=== PATIENT | female | born 1965 | race Caucasian/White ===

== ENCOUNTER 2019-07-16 08:06 | Outpatient (CLI) | payer BC, SELFPAY ==
--- NOTE | 2019-07-16 08:21 | XR_ITS ---
WS: [id number] LEFT ELBOW: 3 VIEW(S) TECHNIQUE: AP, oblique and lateral. HISTORY: left elbow trauma and pain COMPARISON: None available. No definite fracture. There is a lucency extending vertically through the radial metaphysis. Only see n on one image. No joint effusion. No soft tissue abnormality. XR/XR elbow LT min 3V* [id number] IMPRESSION: No joint effusion. No definite fracture seen.
== END 2019-07-16 08:07 | disposition home or self-care (01) ==
LOC: RADWPI 08:11
PROVIDERS: Family Provider Family Medicine; PCP Family Medicine; Visit Provider Family Medicine
DX: M25.522 Pain in left elbow (principal)
CPT/HCPCS: 73080

== ENCOUNTER → 2019-08-13 10:37 | Outpatient (BNVA) | payer BC, SELFPAY | PROVIDERS: Family Provider Family Medicine; PCP Family Medicine; Visit Provider Nurse Practitioner Family | DX: M54.9 Dorsalgia, unspecified (principal) | CPT/HCPCS: 81000 ==

== ENCOUNTER → 2019-11-11 08:33 | Outpatient (BNVA) | payer BC, SELFPAY | PROVIDERS: Family Provider Family Medicine; PCP Family Medicine; Visit Provider Family Medicine | DX: I10 Essential (primary) hypertension (principal) | CPT/HCPCS: 80053; 80061; 82043; 85025 ==

== ENCOUNTER → 2019-11-23 07:11 | Outpatient (BNVA) | payer BC, SELFPAY | PROVIDERS: Family Provider Family Medicine; PCP Family Medicine; Visit Provider Family Medicine | DX: Z12.11 Encounter for screening for malignant neoplasm of colon (principal) | CPT/HCPCS: 82270 ==

== ENCOUNTER → 2020-03-06 11:38 | Outpatient (BNVA) | payer BC, SELFPAY | PROVIDERS: Family Provider Family Medicine; PCP Family Medicine; Visit Provider Nurse Practitioner Family | DX: Z20.828 Contact with and (suspected) exposure to other viral communicable diseases (principal); R43.0 Anosmia | CPT/HCPCS: 87635 ==

== ENCOUNTER 2020-07-17 10:46 | Outpatient (CLI) | payer BC, SELFPAY | END 2020-07-17 10:47 | disposition home or self-care (01) | PROVIDERS: PCP Family Medicine; Visit Provider Nurse Practitioner | DX: R10.9 Unspecified abdominal pain (principal) | CPT/HCPCS: 36415; 85025 ==

== ENCOUNTER 2020-07-17 12:16 | Observation (INO) | payer BC, SELFPAY ==
[2020-07-17] VITALS (13 sets, daily range): BP systolic 125–168; BP diastolic 77–107; PULSE 77–110; RESP 12–20; TEMP 36.3–37.3; O2SAT 95–100; BMI 25.0
--- NOTE | 2020-07-17 12:20 | ED_ITS ---
Documented by User: ELIZ Sosa 07/17/20 13:55 HPI - Abdominal Pain General: Chief Complaint: Abdominal Pain Stated Complaint: RLQ pain Time Seen by Provider: 07/17/20 12:20 Source: patient Mode of arrival: ambulatory Limitations: no limitations History of Present Illness: HPI narrative: Patient is a nice 54-year-old female who presents to ED today after she was seen at urgent care and referred to the ED for further evaluation. Patient tells me yesterday she began noticing a slight discomfort to her right lower abdomen but nothing that was intolerable. She states this morning when she woke up she quickly noticed the pain had progressed to the point where she was quite uncomfortable. She has not noticed any nausea or vomiting. She continues to have normal bowel movements. She does not complain of dysuria, urinary frequency or urgency. She has not been running fevers. PMH is significant for allergic rhinitis and hypertension. MD elicited complaint: abdominal pain Pertinent past history: none Onset (ago): hour(s) Pain Consistency: constant Location: RLQ Quality: sharp Radiation: none Migration to: no migration Exacerbating factors: movement Relieving factors: nothing Associated Symptoms: Reports no associated symptoms; Denies change in stool character, chills, diarrhea, dysuria, fever(s), nausea and vomiting Related Data: Patient : No Review of Systems Const: Denies: fever(s), chills, body aches, fatigue or malaise Card: Denies: chest pain Resp: Denies: dyspnea GI: Reports: abdominal pain; Denies: nausea, vomiting, diarrhea or change in stool character : Denies: flank pain, dysuria, urinary frequency or urinary urgency Musc: Denies: neck pain or back pain Skin/Breast: Denies: rash Neuro: Denies: headache(s) PFSH ED PFSH: Medical History Allergic rhinitis Essential hypertension Reflux esophagitis Surgical History H/O carpal tunnel repair H/O section H/O hernia repair H/O knee surgery Family History Other CAD (coronary artery disease) Cancer Hypertension Social History (Updated 07/17/20 @ 12:32 by Isaac Patterson RN) Smoking and tobacco status: former smoker Alcohol intake: current Alcohol intake frequency: 0-2 Drinks per Day Alcohol type: beer Physical Exam Const: COMMON NORMALS: no acute distress, average body habitus, patient oriented x3, no limitations, healthy appearing, alert and well nourished GENERAL APPEARANCE: cooperative HENMT: COMMON NORMALS: normocephalic and atraumatic HEAD & SCALP: normocephalic and atraumatic Resp: COMMON NORMALS: normal respiratory effort and clear to auscultation bilaterally AUSCULTATION: clear to auscultation bilaterally Cardio: COMMON NORMALS: regular rhythm RATE: tachycardic RHYTHM: regular rhythm GI: COMMON NORMALS: Normal to inspection, nondistended, normoactive bowel sounds present, Soft to palpation, No hepatosplenomegaly present and no masses PALPATION: Yes Soft to palpation, Yes Tenderness to palpation present (GI) (max tenderness to RLQ but has tenderness throughout lower abdomen) Details: RLQ, Yes Guarding due to palpation present (GI), Yes No hepatosplenomegaly present and Yes Other GI palpation findings present (negative obturator/psoas; equivocal heel tap) : COMMON NORMALS: Yes no CVA tenderness BLADDER/KIDNEY EXAM: Yes no CVA tenderness Back/Pelvis: COMMON NORMALS: no CVA tenderness Extremity: COMMON NORMALS: normal to inspection Neuro: COMMON NORMALS: patient oriented x3 SENSORIUM/ORIENTATION: Yes alert Skin: COMMON NORMALS: no rashes or lesions noted GENERAL SKIN EXAM: no rashes or lesions noted TRAUMA: no lacerations or abrasions Course Consultations: Consultation #1: Dr. Cade-admit to him obs; IV Zosyn, fluids, NPO; plan for OR in a few hours Vital Signs: Vital signs: Vital Signs Temperature 98.8 F 07/17/20 23:20 Pulse Rate 89 07/17/20 23:20 Respiratory Rate 18 07/17/20 23:20 Blood Pressure 152/84 07/17/20 23:20 Pulse Oximetry 95 07/17/20 23:20 MDM - Abdominal Pain MDM Narrative: Medical decision making narrative: Patient has an acute appendicitis without perforation or rupture. She is mildly tachycardic with a white count of 13.6. No fevers or hypotension. She has a normal lactate. Remainder of labs are non-concerning. I have spoken to Dr. Cade who will take to the OR. She has been started on IV fluids and Zosyn. Lab Data: Labs: Lab Results 07/17/20 07/17/20 07/17/20 Range/Units 12:35 12:35 12:35 WBC 13.6 H (4.0-10.0) 10^3/ uL RBC 4.66 (4.1-5.3) 10^6/u L Hgb 14.6 (11.5-15.3) g/dL Hct 43.9 (37.0-47.0) % MCV 94.2 (81-99) fL MCH 31.3 (28.0-34.0) pg MCHC 33.3 (30.0-36.0) g/dL RDW 12.2 (12.1-15.1) % Plt Count 265 (130-400) 10^3/c mm MPV 9.7 (7.4-10.4) fL Neut % (Auto) 83.2 % Lymph % (Auto) 9.2 % [place] % (Auto) 6.7 % Eos % (Auto) 0.3 % Baso % (Auto) 0.4 % Neut # (Auto) 11.30 H (1.8-7.7) 10^3/u L Lymph # (Auto) 1.3 (0.8-4.8) 10^3/u L [place] # (Auto) 0.9 (0.2-0.9) 10^3/u L Eos # (Auto) 0.0 (0.0-0.8) 10^3/u L Baso # (Auto) 0.1 (0.0-0.1) 10^3/u L Nucleated RBC % (a uto) 0 % Nucleated RBCs # 0.0 /100WBC Sodium 139 (136-145) mmol/L Potassium 4.2 (3.5-5.1) mmol/L Chloride 102 (98-107) mmol/L Carbon Dioxide 24 (22-29) mmol/L Anion Gap 17.2 (5-19) BUN 11 (6-20) mg/dL Creatinine 0.9 (0.5-0.9) mg/dL GFR Calculation 65.0 L (90-130) mL/min Glucose 150 H (65-115) mg/dL Calculated Osmolal ity 290 (285-295) mOsm/k g Lactic Acid 2.0 (0.5-2.2) mmol/L Calcium 9.2 (8.5-10.5) mg/dL Total Bilirubin 0.7 (0.15-1.2) mg/dL AST 16 (0-32) U/L ALT 19 (0-33) U/L Alkaline Phosphata se 66 (35-105) IU/L Total Protein 7.4 (6.6-8.7) g/dL Albumin 4.7 (3.5-5.2) g/dL Globulin 2.7 (1.3-4.6) g/dL Lipase 24 (13-60) U/L HCG, Qual (Negative) Urine Color (Yellow) Urine Appearance (CLEAR) Urine pH (5-7) Ur Specific Gravit y (1.005-1.030) Urine Protein (Negative) Urine Glucose (UA) (Normal) Urine Ketones (Negative) Urine Blood (Negative) Urine Nitrate (Negative) Urine Bilirubin (Negative) Prot Sulfosalicyli c Acd (Negative) Urine Urobilinogen (Negative) mg/dL Ur Leukocyte Salima ase (Negative) Urine RBC (0-2) /hpf Urine WBC (0-5) /hpf Ur Squamous Epith Cells (0-5) /hpf Amorphous Sediment Urine Bacteria (NONE) /hpf Urine Mucus /hpf 07/17/20 07/17/20 Range/Units 12:35 12:35 WBC (4.0-10.0) 10^3/ uL RBC (4.1-5.3) 10^6/u L Hgb (11.5-15.3) g/dL Hct (37.0-47.0) % MCV (81-99) fL MCH (28.0-34.0) pg MCHC (30.0-36.0) g/dL RDW (12.1-15.1) % Plt Count (130-400) 10^3/c mm MPV (7.4-10.4) fL Neut % (Auto) % Lymph % (Auto) % [place] % (Auto) % Eos % (Auto) % Baso % (Auto) % Neut # (Auto) (1.8-7.7) 10^3/u L Lymph # (Auto) (0.8-4.8) 10^3/u L [place] # (Auto) (0.2-0.9) 10^3/u L Eos # (Auto) (0.0-0.8) 10^3/u L Baso # (Auto) (0.0-0.1) 10^3/u L Nucleated RBC % (a uto) % Nucleated RBCs # /100WBC Sodium (136-145) mmol/L Potassium (3.5-5.1) mmol/L Chloride (98-107) mmol/L Carbon Dioxide (22-29) mmol/L Anion Gap (5-19) BUN (6-20) mg/dL Creatinine (0.5-0.9) mg/dL GFR Calculation (90-130) mL/min Glucose (65-115) mg/dL Calculated Osmolal ity (285-295) mOsm/k g Lactic Acid (0.5-2.2) mmol/L Calcium (8.5-10.5) mg/dL Total Bilirubin (0.15-1.2) mg/dL AST (0-32) U/L ALT (0-33) U/L Alkaline Phosphata se (35-105) IU/L Total Protein (6.6-8.7) g/dL Albumin (3.5-5.2) g/dL Globulin (1.3-4.6) g/dL Lipase (13-60) U/L HCG, Qual Negative (Negative) Urine Color Yellow (Yellow) Urine Appearance Clear (CLEAR) Urine pH 9 H (5-7) Ur Specific Gravit y 1.015 (1.005-1.030) Urine Protein Trace (Negative) Urine Glucose (UA) Norm (Normal) Urine Ketones Negative (Negative) Urine Blood Neg (Negative) Urine Nitrate Negative (Negative) Urine Bilirubin Neg (Negative) Prot Sulfosalicyli c Acd Negative (Negative) Urine Urobilinogen Norm (Negative) mg/dL Ur Leukocyte Salima ase Negative (Negative) Urine RBC 5-10 H (0-2) /hpf Urine WBC None (0-5) /hpf Ur Squamous Epith Cells 0-4 H (0-5) /hpf Amorphous Sediment Not Reportable Urine Bacteria 1+ H (NONE) /hpf Urine Mucus 4+ /hpf Imaging Data ^: CT Abd/Pel: Radiologist's impression: [id number] [place], [place] [address]VJ Scan ReportSigned Patient: Noemí Plummer #: [id number]: 1965Acct#:[id number]/Sex: 54 / FADM Date: 07/17/20Loc: ERRoom/Bed:Attending Dr: Ordering Provider/Ordering MD: Sherlyn Garcia Date of Service: 07/17/20 Procedure(s): CT abdomen pelvis w con* [id number] Accession Number(s): [id number] Report Number: [id number] WS: [id number] CT ABDOMEN AND PELVIS WITH CONTRAST HISTORY: R lower abdominal pain TECHNIQUE: Imaging performed of the abdomen and pelvis with IV contrast. Single phase imaging of the abdomen. Coronal and sagittal reformats are submitted. All CT scans at [facility] use at least one of these dose optimization techniques: automated exposure control; mA and/or kV adjustment per patient size (includes targeted exams where dose is matched to clinical indication); or iterative reconstruction. IV CONTRAST: Omnipaque 300; 95 mL IV. Oral contrast: No DLP: 1171.8 mGy.cm COMPARISON: None available. Lower thorax: Lung bases are clear. Heart is normal size. No hiatal hernia. Liver/biliary system: Normal size liver. Low-attenuation nodule measuring 6 mm in the RIGHT lobe. There is a larger cyst near the yahaira hepatis measuring 1.6 cm. No bile duct dilatation. Gallbladder: Normal. No gallstones or wall thickening. No pericholecystic fluid. Pancreas: Normal size pancreas and pancreatic duct. No adjacent inflammation. Spleen: Normal size spleen. No mass or infarct. Adrenal glands: Normal. Right kidney: Normal. Left kidney: Normal. Aorta: Normal. Lymphadenopathy: None. Free fluid: Very small amount of free fluid in the pelvis. GI tract: Inflammatory process in the RIGHT lower quadrant. There is mild hyperemia in the wall of the appendix and the appendix is dilated measuring up to 9 mm. There is mild periappendiceal inflammation. There are a few small lymph nodes also in the RIGHT lower quadrant. No GI tract obstruction. The remaining GI tract is negative. Abdominal wall: Unremarkable abdominal wall. No hernia. Pelvis: Tiny amount of free fluid in the pelvis. Could be physiologic. Normal size uterus. No adnexal masses other than normal-appearing ovaries. Bones: Unremarkable. CT/CT abdomen pelvis w con* [id number] IMPRESSION: 1. Acute appendicitis with no pelvic abscess. Small reactive lymph nodes in the RIGHT lower quadrant. 2. Hepatic cysts. Discharge Plan Discharge Patient Disposition: Admitted As Inpatient Admit Provider: Casimiro Cade Clinical Impression: Acute appendicitis Qualifiers: Acute appendicitis type: with localized peritonitis Appendicitis gangrene presence: without gangrene Appendicitis perforation presence: without perforation Appendicitis abscess presence: without abscess Qualified Code(s): K35.30 - Acute appendicitis with localized peritonitis, without perforation or gangrene Condition: Stable Coding Level of Care Code ED Director Of Counseling for Chg Fwd Exam Comprehensive Documented by User: Luis Hutchins MD 07/17/20 23:29 HPI - Abdominal Pain General: Chief Complaint: Abdominal Pain Stated Complaint: RLQ pain Time Seen by Provider: 07/17/20 12:20 [facility] ED PFSH: Medical History Allergic rhinitis Essential hypertension Reflux esophagitis Surgical History H/O carpal tunnel repair H/O section H/O hernia repair H/O knee surgery Family History Other CAD (coronary artery disease) Cancer Hypertension Social History (Updated 07/17/20 @ 12:32 by Isaac Patterson RN) Smoking and tobacco status: former smoker Alcohol intake: current Alcohol intake frequency: 0-2 Drinks per Day Alcohol type: beer Course Vital Signs: Vital signs: Vital Signs Temperature 98.8 F 07/17/20 23:20 Pulse Rate 89 07/17/20 23:20 Respiratory Rate 18 07/17/20 23:20 Blood Pressure 152/84 07/17/20 23:20 Pulse Oximetry 95 07/17/20 23:20 MDM - Abdominal Pain Lab Data: Labs: Lab Results 07/17/20 07/17/20 07/17/20 Range/Units 12:35 12:35 12:35 WBC 13.6 H (4.0-10.0) 10^3/ uL RBC 4.66 (4.1-5.3) 10^6/u L Hgb 14.6 (11.5-15.3) g/dL Hct 43.9 (37.0-47.0) % MCV 94.2 (81-99) fL MCH 31.3 (28.0-34.0) pg MCHC 33.3 (30.0-36.0) g/dL RDW 12.2 (12.1-15.1) % Plt Count 265 (130-400) 10^3/c mm MPV 9.7 (7.4-10.4) fL Neut % (Auto) 83.2 % Lymph % (Auto) 9.2 % [place] % (Auto) 6.7 % Eos % (Auto) 0.3 % Baso % (Auto) 0.4 % Neut # (Auto) 11.30 H (1.8-7.7) 10^3/u L Lymph # (Auto) 1.3 (0.8-4.8) 10^3/u L [place] # (Auto) 0.9 (0.2-0.9) 10^3/u L Eos # (Auto) 0.0 (0.0-0.8) 10^3/u L Baso # (Auto) 0.1 (0.0-0.1) 10^3/u L Nucleated RBC % (a uto) 0 % Nucleated RBCs # 0.0 /100WBC Sodium 139 (136-145) mmol/L Potassium 4.2 (3.5-5.1) mmol/L Chloride 102 (98-107) mmol/L Carbon Dioxide 24 (22-29) mmol/L Anion Gap 17.2 (5-19) BUN 11 (6-20) mg/dL Creatinine 0.9 (0.5-0.9) mg/dL GFR Calculation 65.0 L (90-130) mL/min Glucose 150 H (65-115) mg/dL Calculated Osmolal ity 290 (285-295) mOsm/k g Lactic Acid 2.0 (0.5-2.2) mmol/L Calcium 9.2 (8.5-10.5) mg/dL Total Bilirubin 0.7 (0.15-1.2) mg/dL AST 16 (0-32) U/L ALT 19 (0-33) U/L Alkaline Phosphata se 66 (35-105) IU/L Total Protein 7.4 (6.6-8.7) g/dL Albumin 4.7 (3.5-5.2) g/dL Globulin 2.7 (1.3-4.6) g/dL Lipase 24 (13-60) U/L HCG, Qual (Negative) Urine Color (Yellow) Urine Appearance (CLEAR) Urine pH (5-7) Ur Specific Gravit y (1.005-1.030) Urine Protein (Negative) Urine Glucose (UA) (Normal) Urine Ketones (Negative) Urine Blood (Negative) Urine Nitrate (Negative) Urine Bilirubin (Negative) Prot Sulfosalicyli c Acd (Negative) Urine Urobilinogen (Negative) mg/dL Ur Leukocyte Salima ase (Negative) Urine RBC (0-2) /hpf Urine WBC (0-5) /hpf Ur Squamous Epith Cells (0-5) /hpf Amorphous Sediment Urine Bacteria (NONE) /hpf Urine Mucus /hpf 07/17/20 07/17/20 Range/Units 12:35 12:35 WBC (4.0-10.0) 10^3/ uL RBC (4.1-5.3) 10^6/u L Hgb (11.5-15.3) g/dL Hct (37.0-47.0) % MCV (81-99) fL MCH (28.0-34.0) pg MCHC (30.0-36.0) g/dL RDW (12.1-15.1) % Plt Count (130-400) 10^3/c mm MPV (7.4-10.4) fL Neut % (Auto) % Lymph % (Auto) % [place] % (Auto) % Eos % (Auto) % Baso % (Auto) % Neut # (Auto) (1.8-7.7) 10^3/u L Lymph # (Auto) (0.8-4.8) 10^3/u L [place] # (Auto) (0.2-0.9) 10^3/u L Eos # (Auto) (0.0-0.8) 10^3/u L Baso # (Auto) (0.0-0.1) 10^3/u L Nucleated RBC % (a uto) % Nucleated RBCs # /100WBC Sodium (136-145) mmol/L Potassium (3.5-5.1) mmol/L Chloride (98-107) mmol/L Carbon Dioxide (22-29) mmol/L Anion Gap (5-19) BUN (6-20) mg/dL Creatinine (0.5-0.9) mg/dL GFR Calculation (90-130) mL/min Glucose (65-115) mg/dL Calculated Osmolal ity (285-295) mOsm/k g Lactic Acid (0.5-2.2) mmol/L Calcium (8.5-10.5) mg/dL Total Bilirubin (0.15-1.2) mg/dL AST (0-32) U/L ALT (0-33) U/L Alkaline Phosphata se (35-105) IU/L Total Protein (6.6-8.7) g/dL Albumin (3.5-5.2) g/dL Globulin (1.3-4.6) g/dL Lipase (13-60) U/L HCG, Qual Negative (Negative) Urine Color Yellow (Yellow) Urine Appearance Clear (CLEAR) Urine pH 9 H (5-7) Ur Specific Gravit y 1.015 (1.005-1.030) Urine Protein Trace (Negative) Urine Glucose (UA) Norm (Normal) Urine Ketones Negative (Negative) Urine Blood Neg (Negative) Urine Nitrate Negative (Negative) Urine Bilirubin Neg (Negative) Prot Sulfosalicyli c Acd Negative (Negative) Urine Urobilinogen Norm (Negative) mg/dL Ur Leukocyte Salima ase Negative (Negative) Urine RBC 5-10 H (0-2) /hpf Urine WBC None (0-5) /hpf Ur Squamous Epith Cells 0-4 H (0-5) /hpf Amorphous Sediment Not Reportable Urine Bacteria 1+ H (NONE) /hpf Urine Mucus 4+ /hpf Discharge Plan Discharge Patient Disposition: Admitted As Inpatient Admit Provider: Casimiro Cade Clinical Impression: Acute appendicitis Qualifiers: Acute appendicitis type: with localized peritonitis Appendicitis gangrene presence: without gangrene Appendicitis perforation presence: without perforation Appendicitis abscess presence: without abscess Qualified Code(s): K35.30 - Acute appendicitis with localized peritonitis, without perforation or gangrene Condition: Stable Coding Level of Care Code ED Director Of Counseling for Chg Fwd Exam Comprehensive
--- NOTE | 2020-07-17 12:29 | CT_ITS ---
WS: [id number] CT ABDOMEN AND PELVIS WITH CONTRAST HISTORY: R lower abdominal pain TECHNIQUE: Imaging performed of the abdomen and pelvis with IV contrast. Single phase imaging of the abdomen. Coronal and sagittal reformats are submitted. All CT scans at [facility] use at least one of these dose optimization techniques: automated exposure control; mA and/or kV adjustment per patient size (includes targeted exams where dose is matched to clinical indication); or iterativ e reconstruction. IV CONTRAST: Omnipaque 300; 95 mL IV. Oral contrast: No DLP: 1171.8 mGy.cm COMPARISON: None available. Lower thorax: Lung bases are clear. Heart is normal size. No hiatal hernia. Liver/biliary system: Normal size liver. Low-attenuation nodule measuring 6 mm in the RIGHT lobe. The re is a larger cyst near the yahaira hepatis measuring 1.6 cm. No bile duct dilatation. Gallbladder: Normal. No gallstones or wall thickening. No pericholecystic fluid. Pancreas: Normal size pancreas and pancreatic duct. No adjacent inflammation. Spleen: Normal size spleen. No mass or infarct. Adrenal glands: Normal. Right kidney: Normal. Left kidney: Normal. Aorta: Normal. Lymphadenopathy: None. Free fluid: Very small amount of free fluid in the pelvis. GI tract: Inflammatory process in the RIGHT lower quadrant. There is mild hyperemia in the wall of th e appendix and the appendix is dilated measuring up to 9 mm. There is mild periappendiceal inflammati on. There are a few small lymph nodes also in the RIGHT lower quadrant. No GI tract obstruction. The remaining GI tract is negative. Abdominal wall: Unremarkable abdominal wall. No hernia. Pelvis: Tiny amount of free fluid in the pelvis. Could be physiologic. Normal size uterus. No adnexal masses other than normal-appearing ovaries. Bones: Unremarkable. CT/CT abdomen pelvis w con* [id number] IMPRESSION: 1. Acute appendicitis with no pelvic abscess. Small reactive lymph nodes in th e RIGHT lower quadrant. 2. Hepatic cysts.
[2020-07-17] MEDS: acetaminophen 1,000 MG/100 ML PIGGYBACK 400 MG IV (12:35)
--- NOTE | 2020-07-17 12:40 | PC.PHAR ---
pt states she takes care of her medications- pt states she hasnt taken her amlodipine 2.5mg for a few days-[facility]ada states they last filled 06/19/2019 90d/s-pt states she only took 30 days of lipitor 10mg and hasnt taken since jan-
[2020-07-17 12:49] LABS: Basophils # 0.1 10^3/uL (0.0-0.1); Basophils % 0.4 %; Eosinophils % 0.3 %; Hematocrit 43.9 % (37.0-47.0); Hemoglobin 14.6 g/dL (11.5-15.3); Lymphocytes # 1.3 10^3/uL (0.8-4.8); Lymphocytes % 9.2 %; Mean Corpuscular HGB Conc 33.3 g/dL (30.0-36.0); Mean Corpuscular Hemoglobin 31.3 pg (28.0-34.0); Mean Corpuscular Volume 94.2 fL (81-99); Mean Platelet Volume 9.7 fL (7.4-10.4); Monocytes # 0.9 10^3/uL (0.2-0.9); Monocytes % 6.7 %; Neutrophils % 83.2 %; Nucleated Red Blood Cells % 0 %; Platelet Count 265 10^3/cmm (130-400); Red Blood Count 4.66 10^6/uL (4.1-5.3); Red Cell Distribution Width 12.2 % (12.1-15.1); White Blood Count 13.6 10^3/uL (4.0-10.0)
[2020-07-17] MEDS: iohexol 300 mg/mL 100 mL Btl IV (12:52)
[2020-07-17 13:09] LABS: Add Urine Microscopic? YES; Bilirubin Urine Neg (Negative); Blood Urine Neg (Negative); Glucose Urine UA Norm (Normal); Ketones Urine Negative (Negative); Leukocyte Esterase Urine Negative (Negative); Mucus Urine 4+ /hpf; Nitrate Urine Negative (Negative); Protein Urine Trace (Negative); Specific Gravity, Urine 1.015 (1.005-1.030); Sulfosalicylic Acid Urine Negative (Negative); Urine Appearance Clear (CLEAR); Urine Color Yellow (Yellow); Urobilinogen Urine Norm (Negative); pH Urine 9 (5-7)
[2020-07-17 13:10] LABS: Bacteria Urine 1+ /hpf; Squamous Epithelial Cell Urine 0-4 /hpf (0-5)
[2020-07-17 13:11] LABS: Add Urine Culture? No
[2020-07-17 13:12] LABS: Alanine Aminotransferase 19 U/L (0-33); Albumin Level 4.7 g/dL (3.5-5.2); Alkaline Phosphatase 66 IU/L (35-105); Anion Gap 17.2 (5-19); Aspartate Amino Transferase 16 U/L (0-32); Blood Urea Nitrogen 11 mg/dL (6-20); Calcium 9.2 mg/dL (8.5-10.5); Carbon Dioxide 24 mmol/L (22-29); Chloride 102 mmol/L (98-107); Globulin 2.7 g/dL (1.3-4.6); Glucose 150 mg/dL (65-115); HCG, Serum Qual Negative (Negative); Lipase 24 U/L (13-60); Osmolality Calculated 290 mOsm/kg (285-295); Potassium 4.2 mmol/L (3.5-5.1); Sodium 139 mmol/L (136-145); Total Bilirubin 0.7 mg/dL (0.15-1.2); Total Protein 7.4 g/dL (6.6-8.7)
[2020-07-17] MEDS: sodium chloride 0.9% 1,000 ML 999 ML IV (13:30)
[2020-07-17] MEDS: piperacillin-tazobactam 3.375 GM in sodium chloride 0.9% (plus) 50 ML IV ×2 (13:30→20:57)
--- NOTE | 2020-07-17 13:52 | PM.HP ---
Providers/Chief Complaint Primary Care Provider: Isabell Laboy DO Chief Complaint: RLQ pain History of Present Illness Chief Complaint: Abdominal pain History of present illness:Ms Prudence Plummer is a pleasant 54 year old female presents to the emergency department with worsening abdominal pain that started yesterday evening at the periumbilical area, that started shifting towards the right lower quadrant. Associated with nausea but no vomiting and no change in bowel habits or dysuria. Patient reports that she never had this pain before. The pain got worse presented to the ER for further work-up and blood work showed leukocytosis and some tachycardia and she was started on IV fluids. And patient seemed to be responded to that CT scan of the abdomen pelvis did show Lower thorax: Lung bases are clear. Heart is normal size. No hiatal hernia. Liver/biliary system: Normal size liver. Low-attenuation nodule measuring 6 mm in the RIGHT lobe. There is a larger cyst near the yahaira hepatis measuring 1.6 cm. No bile duct dilatation. Gallbladder: Normal. No gallstones or wall thickening. No pericholecystic fluid. Pancreas: Normal size pancreas and pancreatic duct. No adjacent inflammation. Spleen: Normal size spleen. No mass or infarct. Adrenal glands: Normal. Right kidney: Normal. Left kidney: Normal. Aorta: Normal. Lymphadenopathy: None. Free fluid: Very small amount of free fluid in the pelvis. GI tract: Inflammatory process in the RIGHT lower quadrant. There is mild hyperemia in the wall of the appendix and the appendix is dilated measuring up to 9 mm. There is mild periappendiceal inflammation. There are a few small lymph nodes also in the RIGHT lower quadrant. No GI tract obstruction. The remaining GI tract is negative. Abdominal wall: Unremarkable abdominal wall. No hernia. Pelvis: Tiny amount of free fluid in the pelvis. Could be physiologic. Normal size uterus. No adnexal masses other than normal-appearing ovaries. Bones: Unremarkable. CT/CT abdomen pelvis w con* [id number] IMPRESSION: 1. Acute appendicitis with no pelvic abscess. Small reactive lymph nodes in the RIGHT lower quadrant. 2. Hepatic cysts. General surgery was consulted for further evaluation and care. Last colonoscopy 1 the patient was asked was done many years ago and was within normal limits per patient's description. Patient reports no history of anesthesia or bleeding issues. Review of Systems General: Reports: 10 or more systems reviewed and unremarkable except in HPI and below Medications/Allergies Home Medications Medication Instructions Recorded Confirmed Last Taken Type fluticasone propionate 50 1 spray INTRANASAL BID #15.8 ml 11/11/19 07/17/20 07/17/20 Rx mcg/actuation nasal spray,suspension Vitamin B-12 1 tab PO DAILY 07/17/20 07/17/20 07/16/20 History albuterol sulfate 2.5 mg INHALATION PRN 07/17/20 07/17/20 Unknown History amlodipine 2.5 mg PO QAM 07/17/20 07/17/20 Unknown History ibuprofen 800 mg PO PRN 07/17/20 07/17/20 Unknown History montelukast 10 mg PO BEDTIME 07/17/20 07/17/20 07/16/20 History Allergies Allergy/AdvReac Type Severity Reaction Status Date / Time codeine Allergy hives Verified 07/17/20 13:54 PFSH Acute PFSH: Medical History Allergic rhinitis Essential hypertension Reflux esophagitis Surgical History H/O carpal tunnel repair H/O section H/O hernia repair H/O knee surgery Family History Other CAD (coronary artery disease) Cancer Hypertension Social History (Updated 07/17/20 @ 12:32 by Isaac Patterson RN) Smoking and tobacco status: former smoker Alcohol intake: current Alcohol intake frequency: 0-2 Drinks per Day Alcohol type: beer Vitals/I&O/Wt Last Vital Signs Temp 99.1 F 07/17/20 12:24 Pulse 110 H 07/17/20 12:24 Resp 18 07/17/20 13:07 BP 142/77 07/17/20 13:07 Pulse Ox 97 07/17/20 13:07 07/16/20 07/17/20 07/17/20 22:59 06:59 14:59 Intake Total 100 / 100 Balance 100 / 100 Weight last 48 hrs Weight 165 lb Physical Exam Narrative: EXAM NARRATIVE: Patient is conscious alert oriented X3 BMI 25.1 Head and neck examination PERRLA no masses no cervical lymphadenopathy no jaundice Cardiac examination audible S1-S2 no murmurs no gallops no arrhythmias Chest is clear bilateral,abscence of Rhonchi or wheezes,no surgical emphysema Abdomen nontender except towards the suprapubic and right lower quadrant with localized guarding and rigidity w maximal tenderness at McBurney's point consistent with acute appendicitis. Otherwise nondistended soft no organomegaly guarding or rigidity/no signs of peritonitis Extremities no cyanosis no clubbing no edema Data : 07/17/20 12:35 07/17/20 12:35 A&P Assessment and plan (1) Acute appendicitis: After thorough history physical examination and reviewing the chart and images with my personal interpretion, I counseled the patient for laparoscopic appendectomy possible open. Indications, risks, benefits and alternatives were all discussed with the patient and did agree to proceed. Rationale was carefully and clearly discussed with the patient.Appropriate informed consent have been reviewed and signed Status: Acute Qualifiers: Acute appendicitis type: with localized peritonitis Appendicitis abscess presence: without abscess Appendicitis gangrene presence: without gangrene Appendicitis perforation presence: without perforation Qualified Code(s): K35.30 - Acute appendicitis with localized peritonitis, without perforation or gangrene Attestations Medical Necessity Statement*: Observation for perioperative care Time Spent in Patient Care: (>than 50% of time spent in counselling and/or direct pt care on unit). Coding Level of Care Code Acute Provider Relations Consultant for [facility] Fwd Diagnoses Acute appendicitis K35.30 Acute appendicitis type: with localized peritonitis Appendicitis abscess presence: without abscess Appendicitis gangrene presence: without gangrene Appendicitis perforation presence: without perforation
[2020-07-17] MEDS: sodium chloride 0.9% 1,000 ML 30 ML IV (14:08)
--- NOTE | 2020-07-17 14:36 | P.ANESASSM_ITS ---
Pre-Anesthetic Assessment Pre-Anesthetic Assessment: Height/Weight: Height 1.73 m Weight 74.843 kg Temp Pulse Resp BP Pulse Ox 98.0 F 94 18 141/84 96 07/17/20 14:02 07/17/20 14:02 07/17/20 14:02 07/17/20 14:02 07/17/20 14:02 Preop Diagnosis: Acute appendicitis Proposed Procedure: Operation Date: 07/17/20 15:30 Proposed Procedures p Laparoscopic Appendectomy(Not Applicable) - Casimiro Cade MD Familial anesthetic complications: pONV Was Beta Surya taken within 24 hours: N/A Was Clonidine taken within 24 hours: N/A Last intake: Intake Drank some of a mcdonalds frappe and a few cy[employer]ot fries at 1130 Last Liquid Date 07/17/20 Last Liquid Time 11:30 Last Solid Date 07/17/20 Last Solid Time 08:00 Social: Social History: No alcohol and No tobacco Exam: Pre-Anes Outpt Exam: alert, oriented x 3, clear to auscultation bilaterally and regular rate & rhythm Airway: Cervical ROM: WNL MP: 2 Dentition: Full Pulmonary: Comments: allergies CV/HEM: CV/HEM: HTN Anesthetic Plan: ASA status: 2E Anesthesia: General Other: RSI Risk of > 500 ml blood loss (7ml/kg in children): No Meds/Allergies Current Medications: Current Medications Generic Name Dose Route Start Last Admin Trade Name Freq PRN Reason Stop Dose Admin Acetaminophen 1,000 mg in 100 m ls @ 400 mls/hr 07/17/20 12:29 07/17/20 13:30 Acetaminophen IV Infused ONCE ONE Infusion Sodium Chloride 1,000 mls @ 30 ml s/hr 07/17/20 14:00 07/17/20 14:08 Sodium Chloride 0.9% IV 07/18/20 13:59 30 mls/hr .Q24H CHUY Administration PFSH Anesthesia PFSH: Medical History Allergic rhinitis Essential hypertension Reflux esophagitis Surgical History H/O carpal tunnel repair H/O section H/O hernia repair H/O knee surgery Family History Other CAD (coronary artery disease) Cancer Hypertension Social History (Updated 07/17/20 @ 12:32 by Isaac Patterson RN) Smoking and tobacco status: former smoker Alcohol intake: current Alcohol intake frequency: 0-2 Drinks per Day Alcohol type: beer Data Anesthesia CBC & Chem 7: 07/17/20 12:35 07/17/20 12:35 Other Labs: Laboratory Results - last 48 hr 07/17/20 07/17/20 07/17/20 12:35 12:35 12:35 WBC 13.6 H RBC 4.66 Hgb 14.6 Hct 43.9 MCV 94.2 MCH 31.3 MCHC 33.3 RDW 12.2 Plt Count 265 MPV 9.7 Neut % (Auto) 83.2 Lymph % (Auto) 9.2 [place] % (Auto) 6.7 Eos % (Auto) 0.3 Baso % (Auto) 0.4 Neut # (Auto) 11.30 H Lymph # (Auto) 1.3 [place] # (Auto) 0.9 Eos # (Auto) 0.0 Baso # (Auto) 0.1 Nucleated RBC % (auto) 0 Nucleated RBCs # 0.0 Sodium 139 Potassium 4.2 Chloride 102 Carbon Dioxide 24 Anion Gap 17.2 BUN 11 Creatinine 0.9 GFR Calculation 65.0 L Glucose 150 H Calculated Osmolality 290 Lactic Acid 2.0 Calcium 9.2 Total Bilirubin 0.7 AST 16 ALT 19 Alkaline Phosphatase 66 Total Protein 7.4 Albumin 4.7 Globulin 2.7 Lipase 24 HCG, Qual Urine Color Urine Appearance Urine pH Ur Specific [place] Urine Protein Urine Glucose (UA) Urine Ketones Urine Blood Urine Nitrate Urine Bilirubin Prot Sulfosalicylic Acd Urine Urobilinogen Ur Leukocyte Esterase Urine RBC Urine WBC Ur Squamous Epith Cells Amorphous Sediment Urine Bacteria Urine Mucus 07/17/20 07/17/20 12:35 12:35 WBC RBC Hgb Hct MCV MCH MCHC RDW Plt Count MPV Neut % (Auto) Lymph % (Auto) [place] % (Auto) Eos % (Auto) Baso % (Auto) Neut # (Auto) Lymph # (Auto) [place] # (Auto) Eos # (Auto) Baso # (Auto) Nucleated RBC % (auto) Nucleated RBCs # Sodium Potassium Chloride Carbon Dioxide Anion Gap BUN Creatinine GFR Calculation Glucose Calculated Osmolality Lactic Acid Calcium Total Bilirubin AST ALT Alkaline Phosphatase Total Protein Albumin Globulin Lipase HCG, Qual Negative Urine Color Yellow Urine Appearance Clear Urine pH 9 H Ur Specific [place] 1.015 Urine Protein Trace Urine Glucose (UA) Norm Urine Ketones Negative Urine Blood Neg Urine Nitrate Negative Urine Bilirubin Neg Prot Sulfosalicylic Acd Negative Urine Urobilinogen Norm Ur Leukocyte Esterase Negative Urine RBC 5-10 H Urine WBC None Ur Squamous Epith Cells 0-4 H Amorphous Sediment Not Reportable Urine Bacteria 1+ H Urine Mucus 4+ Cardiac Studies: No Data to Display
[2020-07-17] MEDS: lidocaine 2% INJ 20 mL INJECTION (16:23)
--- NOTE | 2020-07-17 16:32 | P.OP_ITS ---
Operative Report Date of procedure: July 17, 2020 Pre-op Diagnosis: Acute appendicitis Post-op Diagnosis: Retrocecal acute appendicitis with suppuration Procedure Done: Laparoscopic appendectomy Surgeon: Casimiro Cade Director Multiple Sclerosis Center: Surgical emir Gavin circulating nurse Hollie Anesthesia: General (oil developer Marco) Estimated blood loss (mL): 10 IV fluids (mL): 700 Condition: stable Disposition: observation Brief History: 54 years old female patient presents with acute appendicitis. Full H&P and consent per chart. Procedure: Patient after being identified in the holding area and asked to void urine, and informed consent per chart ,patient was then taken back to the OR placed in supine position got intubated by anesthesia left arm was tucked tucked ,Timeout was done verifying the patient's name/date of /planned procedure and destination after the procedure, all were in agreement., preoperative antibiotics administered per protocol. prep and drape of the abdomen was done under the usual sterile technique. Started by longitudinal skin incision supraumbilical using a Quinonez trocar technique safe entry to the abdominal cavity was achieved verified by using 10 mm zero degree laparoscopy, switched to a 30? scope under direct visualization a suprapubic 5 mm trocar was inserted followed by another 5 mm trocar inserted in the left lower quadrant, I was able to position the patient in an T Maddox and left side down, dissection of the prececal acutely inflamed appendix there was some adhesions towards the lateral pelvic wall that was taken down by sharp and blunt dissection, attention was deviated to the healthy base of the appendix where I had to switch the camera to 5 mm 30? scope got introduced through the left lower quadrant and through the Quinonez trocar under direct visualization a GI stapler 45 mm blue load was applied at the healthy part of the base of the appendix, and an Endoloop PDS was applied onto the mesoappendix for control , the appendix was then retrieved in an Endo Catch bag, final survey was done of the abdomen and pelvis , irrigation with warm saline, and suction was obtained, were mercury fluid like in the pelvis due to reaction from the inflamed appendix. Inflamed appendix was encased by the ileocecal junction and portion of the omentum with evidence of flakes of fibrinous exudate but no perforation or abscess formation. Multiple 5 mm clips were applied onto the mesoappendix as well as the appendectomy staple line and a right lateral pelvic wall for minimal oozing. Final look laparoscopy was done showing no other abnormalities or injuries, all trocars were taken out under direct visualization after the supraumblical trocar site was closed by #1 PDS sutures under direct vision using fascial closure device ,followed by skin closure using 4-0 Monocryl of all trocar site incisions. infiltration of local lidocaine 2% was done to all incision sites.Dry dressing was applied. Count was completed at the end of the procedure for [place] , sponges and instruments Patient tolerated the procedure well and was transferred to the recovery area after extubation. I was present for the whole entire procedure
[2020-07-17] MEDS: hyDRALAzine 20 mg/mL INJ 1 mL 10 MG IVP ×2 (16:57→17:07)
--- NOTE | 2020-07-17 17:01 | P.PCN_ITS ---
PACU note PACU note: VSS, Good respiratory effort, report to ENGRAVER OPTICAL FRAMES Post-Anesthesia Exam: awake
--- NOTE | 2020-07-17 17:01 | PM.PACU ---
PACU note PACU note: VSS, Good respiratory effort, report to BUSINESS PROCESS ANALYST Post-Anesthesia Exam: awake
--- NOTE | 2020-07-17 17:12 | SUR.PHASEI ---
1712- ORAL AIRWAY OUT, SIMPLE MASK AT 6LPM SAT 100%
--- NOTE | 2020-07-17 17:45 | ANE.PACU2 ---
Inpatient post-anesthesia follow up: Airway intact: Yes Vital signs: Temperature 97.4 F Pulse Rate [Right Radial] 110 Pulse Rate 80 Respiratory Rate 15 Blood Pressure [Ri ght Arm] 168/107 Blood Pressure 130/83 Pulse Oximetry 95 Oxygen Delivery Me thod Room Air Oxygen Flow Rate 6 Fraction of Inspir ed Oxygen Hydration adequate: Yes Nausea and vomiting: No Pain level: 2 Mental status: Baseline
[2020-07-17] MEDS: sodium chloride 0.9% 1,000 ML 125 ML IV (17:47)
[2020-07-17] MEDS: HYDROcodone-acetaminophen 5-325 mg Tablet 1 TAB PO (17:48)
[2020-07-17] MEDS: famotidine 20 mg/2 mL INJ IVP (20:58)
[2020-07-18] VITALS (7 sets, daily range): BP systolic 149–174; BP diastolic 86–96; PULSE 77–114; RESP 17–18; TEMP 36.9–37.7; O2SAT 93–98
[2020-07-18] MEDS: sodium chloride 0.9% 1,000 ML 125 ML IV ×3 (01:33→21:39)
[2020-07-18 02:40] LABS: Basophils % 0.2 %; Hematocrit 43.7 % (37.0-47.0); Lymphocytes # 0.5 10^3/uL (0.8-4.8); Lymphocytes % 4.3 %; Mean Corpuscular Hemoglobin 31.6 pg (28.0-34.0); Mean Corpuscular Volume 98.6 fL (81-99); Mean Platelet Volume 9.8 fL (7.4-10.4); Monocytes # 0.3 10^3/uL (0.2-0.9); Monocytes % 2.9 %; Neutrophils # 10.29 10^3/uL (1.8-7.7); Neutrophils % 92.3 %; Nucleated Red Blood Cells % 0 %; Platelet Count 240 10^3/cmm (130-400); Red Blood Count 4.43 10^6/uL (4.1-5.3); Red Cell Distribution Width 12.3 % (12.1-15.1); White Blood Count 11.1 10^3/uL (4.0-10.0)
[2020-07-18 03:11] LABS: Anion Gap 13.8 (5-19); Blood Urea Nitrogen 11 mg/dL (6-20); Calcium 8.7 mg/dL (8.5-10.5); Carbon Dioxide 23 mmol/L (22-29); Chloride 106 mmol/L (98-107); Glomerular Filtration Rate 74.5 mL/min (90-130); Glucose 163 mg/dL (65-115); Osmolality Calculated 289 mOsm/kg (285-295); Potassium 4.8 mmol/L (3.5-5.1); Sodium 138 mmol/L (136-145)
[2020-07-18] MEDS: piperacillin-tazobactam 3.375 GM in sodium chloride 0.9% (plus) 50 ML IV ×3 (05:04→21:33)
--- NOTE | 2020-07-18 06:34 | P.PN_ITS ---
Subjective Subjective: Interval history: Patient overall seems to be feeling better and no acute events overnight, did not pass gas yet Medications: Reviewed: Yes Vitals/I&O/Wt Last Vital Signs Temp 99.9 F H 07/18/20 04:00 Pulse 112 H 07/18/20 04:00 Resp 18 07/18/20 04:00 BP 167/89 07/18/20 04:00 Pulse Ox 95 07/18/20 04:00 07/17/20 07/17/20 07/18/20 14:59 22:59 06:59 Intake Total 150 / 150 1999 1020.833 / 3170.833 Output Total 2900 / 2910 Balance 150 / 150 19890 -1879.167 / 260.833 Weight last 48 hrs Weight 165 lb Weight 165 lb Physical Exam Narrative: EXAM NARRATIVE: Patient is conscious alert oriented X3 BMI 25.1 Head and neck examination PERRLA no masses no cervical lymphadenopathy no jaundice Cardiac examination audible S1-S2 no murmurs no gallops no arrhythmias Chest is clear bilateral,abscence of Rhonchi or wheezes,no surgical emphysema Abdomen nontender except mildly at the incision sites nondistended soft no organomegaly guarding or rigidity/no signs of peritonitis, bowel sounds are active Extremities no cyanosis no clubbing no edema Data : 07/19/20 02:54 07/19/20 02:54 A&P Assessment and plan (1) Acute appendicitis: Continue clear liquid diet until passing gas then will advance to full liquids We will drop normal saline to 75 mL/h Continue IV antibiotics Resume home blood pressure medications Encourage ambulation Assurance and education All questions have been answered and all concerns have been addressed to patient's satisfaction. Status: Resolved Qualifiers: Acute appendicitis type: with localized peritonitis Appendicitis abscess presence: without abscess Appendicitis gangrene presence: without gangrene Appendicitis perforation presence: without perforation Qualified C ode(s): K35.30 - Acute appendicitis with localized peritonitis, without perforation or gangrene Attestations Medical Necessity Statement*: Observation status and awaiting bowel function Time Spent in Patient Care: 16 - 35 minutes (>than 50% of time spent in counselling and/or direct pt care on unit) . Coding Level of Care Code Acute Electrical Equipment Technician for [facility] Diagnoses Acute appendicitis K35.30 Acute appendicitis type: with localized peritonitis Appendicitis abscess presence: without abscess Appendicitis gangrene presence: without gangrene Appendicitis perforation presence: without perforation
[2020-07-18] MEDS: HYDROcodone-acetaminophen 5-325 mg Tablet 1 TAB PO ×2 (09:13→15:21)
[2020-07-18] MEDS: amlodipine 5 mg Tablet 2.5 MG PO (09:13)
[2020-07-18] MEDS: famotidine 20 mg/2 mL INJ IVP ×2 (09:14→21:33)
--- NOTE | 2020-07-18 09:25 | PC.NURSE ---
0835 patient given norco for pain. medications didn't scan. leader writer realized it when I was reassessing pain. leader writer scanned meds again but the time will not be accurate. charge nurse, clubhouse manager and pharmacy notified.
--- NOTE | 2020-07-18 10:32 | PC.CHAP ---
Pastoral Care Encounter/Spiritual Assessment Type of Contact [] Declined movie machine operator visit [] Patient/Family/Request visit [] Outpatient visit [] Follow-up visit [] Physician referral [] Code/Alert x[] Routine visit [] Staff referral [] Actively dying [x] Patient sleeping [] Family support [] [] Out of room [] Palliative care [] [] Receiving care in room [] Pre-surgical visit [] Trauma [] Long length of stay [] ICU visit [] Other: Relational/Emotional Strength [] Patient feels connected with others/family/visitors/staff [] Distress [] Loneliness/isolation [] Abandonment Spirituality of Patient [] Person of Earline [] Attends Anabaptism of their Earline [] Believes in Prayer [] Reads Bible or Shinto materials [] There are Spiritual issues to be addressed Armor Officer Interventions [] Prayer [] Active listening [] Non-anxious presence [] Spiritual/emotional support [] Crisis/trauma care [] Spiritual counseling [] Bereavement support [] Provided bereavement packet [] Provided Bible/devotional materials [] Provided toy/stuffed animal, coloring book to patient or family member [] Provided Communion [] Anointing/[place] [] Salvation [] Completed spiritual assessment [] Other: Impact on Illness or Injury [] Angry [] Fearful [] Anxious [] Often cries [] Exhaustion [] Unable to work [] Unable to attend gnosticist [] Unable to walk/stand [] Unable to read [] Unable to drive [] Unable to eat/drink [] Unable to sleep [] Unable to be with family [] Patient intubated [] Other: Summary Time spent with patient
--- NOTE | 2020-07-18 16:54 | PC.NURSE ---
patient still not passing gas and requesting stool softener. dr bradshaw notified.
--- NOTE | 2020-07-18 17:08 | PC.NURSE ---
Rcvd order for alicia from Dr Cade. fiction and nonfiction prose writer put order in.
[2020-07-18] MEDS: docusate sodium 100 mg Capsule PO (17:52)
--- NOTE | 2020-07-18 18:48 | PC.NURSE ---
patient states she has now passed gas twice. Dr Cade notified.
--- NOTE | 2020-07-18 18:50 | PC.NURSE ---
Rcvd order to advance diet to full liquid. greeting card writer put order in.
[2020-07-19] VITALS: BP 143/81; PULSE 89; RESP 22; TEMP 36.7; O2SAT 96
[2020-07-19 03:02] LABS: Basophils % 0.5 %; Eosinophils # 0.1 10^3/uL (0.0-0.8); Eosinophils % 1.1 %; Hematocrit 41.3 % (37.0-47.0); Hemoglobin 13.4 g/dL (11.5-15.3); Lymphocytes # 2.2 10^3/uL (0.8-4.8); Mean Corpuscular HGB Conc 32.4 g/dL (30.0-36.0); Mean Corpuscular Hemoglobin 31.5 pg (28.0-34.0); Mean Corpuscular Volume 97.2 fL (81-99); Monocytes # 0.6 10^3/uL (0.2-0.9); Monocytes % 7.4 %; Neutrophils # 5.21 10^3/uL (1.8-7.7); Neutrophils % 63.8 %; Nucleated Red Blood Cells % 0 %; Platelet Count 243 10^3/cmm (130-400); Red Blood Count 4.25 10^6/uL (4.1-5.3); Red Cell Distribution Width 12.3 % (12.1-15.1); White Blood Count 8.2 10^3/uL (4.0-10.0)
[2020-07-19] MEDS: piperacillin-tazobactam 3.375 GM in sodium chloride 0.9% (plus) 50 ML IV (03:10)
[2020-07-19] MEDS: HYDROcodone-acetaminophen 5-325 mg Tablet 1 TAB PO ×2 (03:10→09:21)
[2020-07-19 03:19] LABS: Anion Gap 12.2 (5-19); Blood Urea Nitrogen 10 mg/dL (6-20); Calcium 8.4 mg/dL (8.5-10.5); Carbon Dioxide 26 mmol/L (22-29); Chloride 104 mmol/L (98-107); Glomerular Filtration Rate 74.5 mL/min (90-130); Glucose 104 mg/dL (65-115); Osmolality Calculated 285 mOsm/kg (285-295); Potassium 4.2 mmol/L (3.5-5.1); Sodium 138 mmol/L (136-145)
[2020-07-19 03:58] VITALS: BP 148/86; PULSE 82; RESP 16; TEMP 37.1; O2SAT 95
--- NOTE | 2020-07-19 06:06 | PM.SDS ---
Short Stay Summary Providers Date of Admit/Discharge: 07/19/20 Attending Provider: Casimiro Cade MD Primary Care Provider: Isabell Laboy DO Chief Complaint: RLQ pain HPI History of Present Illness Chief Complaint: Tummy hurts History of present illness: Ms Prudence Plummer is a 54 year old female scented to the emergency department with worsening abdominal pain and low-grade temperature and was found to have acute appendicitis on the CT scan. Patient was taken for laparoscopic appendectomy did well and was found to have appendicitis with suppuration. Review of Systems General: Reports: 10 or more systems reviewed and unremarkable except in HPI and below Home Meds/Allergies Home Medications and Allergies Home Medications Medication Instructions Recorded Confirmed Type Vitamin B-12 1 tab PO DAILY 07/17/20 07/17/20 History albuterol sulfate 2.5 mg INHALATION PRN 07/17/20 07/17/20 History amlodipine 2.5 mg PO QAM 07/17/20 07/17/20 History ibuprofen 800 mg PO PRN 07/17/20 07/17/20 History montelukast 10 mg PO BEDTIME 07/17/20 07/17/20 History Allergies Allergy/AdvReac Type Severity Reaction Status Date / Time codeine Allergy hives Verified 07/17/20 13:54 PFSH Acute PFSH: Medical History Acute appendicitis Allergic rhinitis Essential hypertension Reflux esophagitis Surgical History H/O carpal tunnel repair H/O section H/O hernia repair H/O knee surgery Family History Other CAD (coronary artery disease) Cancer Hypertension Social History Smoking and tobacco status: former smoker Alcohol intake: current Alcohol intake frequency: 0-2 Drinks per Day Alcohol type: beer Vitals/I&O/Wt Last Vital Signs Temp 98.7 F 07/19/20 03:58 Pulse 82 07/19/20 03:58 Resp 16 07/19/20 03:58 BP 148/86 07/19/20 03:58 Pulse Ox 95 07/19/20 03:58 07/18/20 07/18/20 07/19/20 14:59 22:59 06:59 Intake Total 2129 / 0 2620 / 4750 290 / 5040 Output Total 1600 / 1600 1200 / 2800 Balance 0 / 2130 1020 / 3150 -910 / 2240 Weight last 48 hrs Weight 165 lb Weight 165 lb Physical Exam Narrative: EXAM NARRATIVE: Patient is conscious alert oriented X3 BMI 25.1 Head and neck examination PERRLA no masses no cervical lymphadenopathy no jaundice Cardiac examination audible S1-S2 no murmurs no gallops no arrhythmias Chest is clear bilateral,abscence of Rhonchi or wheezes,no surgical emphysema Abdomen nontender except mildly at the incision sites nondistended soft no organomegaly guarding or rigidity/no signs of peritonitis, bowel sounds are active Incisions are clean dry and intact Extremities no cyanosis no clubbing no edema Hospital Course Hospital Course Patient overall did well after surgery and continued to have stable vital signs and good urine output. Tolerating p.o. intake and passing gas and subsequently advance to full liquid diet. Blood pressure was a bit elevated once home medications were resumed started to be better controlled. Patient looks to be appropriate clinically for safe discharge today. Discharge Summary This is a pleasant 54 years old female patient presents with acute appendicitis, undergone laparoscopic appendectomy overall did well and will plan to discharge home safely today on oral antibiotics and pain medications. With emphasis on stool softeners to avoid constipation and follow-up with Dr. Laboy first available for better control of blood pressure. Return to surgery office in 10 days. SSS Data Data Completed and Pending: Completed Studies During Hospitalization Category Date Time Status CT abdomen pelvis w con* [id number] Urge nt Cat Scan 07/17/20 12:29 Completed Pending at discharge Category Date Time Status ES surgery / GI i mages Routine Exams 07/17/20 15:22 Taken Basic Metabolic P gage AM [facility] Lab 07/20/20 04:00 Ordered Complete Blood Co unt w/Auto AM [facility] Lab 07/20/20 04:00 Ordered Pathology: Surgic al [PTH] Routine Pth 07/17/20 16:57 Received Diagnoses at Discharge Discharge Diagnosis (1) Acute appendicitis: Status: Resolved Permanent problem details: We will plan to discharge patient home today On p.o. antibiotics and pain medication Assurance and education All questions have been answered and all concerns have been addressed to patient's satisfaction. Qualifiers: Acute appendicitis type: with localized peritonitis Appendicitis abscess presence: without abscess Appendicitis gangrene presence: without gangrene Appendicitis perforation presence: without perforation Qualified Code(s): K35.30 - Acute appendicitis with localized peritonitis, without perforation or gangrene Discharge Plan Discharge Patient Disposition: Home Condition: Stable Prescriptions: New hydrocodone-acetaminophen 5-325 mg tablet 1 tab PO Q6H PRN (Reason: pain) Qty: 28 RF: 0 Augmentin 875-125 mg tablet 1 tab PO Q12H Qty: 10 RF: 0 Continued fluticasone propionate [Flonase Allergy Relief] 50 mcg/actuation spray,suspension 1 spray INTRANASAL BID Qty: 15.8 RF: 11 albuterol sulfate 2.5 mg /3 mL (0.083 %) Solution For Nebulization 2.5 mg inhalation PRN RF: 0 Vitamin B-12 1 tab PO DAILY RF: 0 amlodipine 2.5 mg tablet 2.5 mg PO QAM RF: 0 montelukast 10 mg tablet 10 mg PO BEDTIME RF: 0 Held ibuprofen 200 mg Tablet 800 mg PO PRN RF: 0 Hold Instructions: Resume on 07/25/20. Discharge Orders: Discharge Order (Routine); Ordered 07/19/20 Ordered By: Casimiro Cade Referrals: Casimiro Cade MD [Physician] - (Return to surgery office in 10 days) Isabell Laboy DO [Primary Care Provider] - (First available appointment for control of blood pressure) Discharge Diet: Advance as tolerated Discharge Activity: Limit activity as instructed Patient Instructions: Hydrocodone/Acetaminophen (By mouth), Amoxicillin/Clavulanate Potassium (By mouth), Laparoscopic Appendectomy (DC), Opioid Safety Activity Restrictions/Additional Instructions: 1. Patient can shower after 48 hours from surgery 2. Remove Dermabond 7 to 10 days after surgery, if there is a secondary dressing can take down after 48 hours. 3. Up and walking as tolerated 4. Do not lift more than 5 pounds first 2 weeks after surgery and not more than 25 pounds 6 to 8 weeks after surgery. 5. Do not operate heavy machinery or drive while using pain medications. 6.Contact the office or return to the ER for worsening nausea vomiting fevers or chills, or noticing any redness around incision sites or discharge. Attestations Medical Necessity Statement*: Observation status and patient meets appropriate criteria for safe discharge Time Spent in Patient Care*: less than 30 min Specific Discharge Activities: Specific discharge activities: educating patient Status at Discharge: Cognitive status at discharge: cognitively intact, Behavioral status at discharge: cooperative, Functional status at discharge: independent ambulation Overall status at discharge: patient is progressing back to baseline Quality Metrics Clinical Quality Measures: During this hospital stay, did patient experience: None Coding Level of Care Code 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
[2020-07-19 07:20] VITALS: BP 152/98; PULSE 85; RESP 18; TEMP 36.4; O2SAT 93
[2020-07-19] MEDS: docusate sodium 100 mg Capsule PO (07:57)
[2020-07-19] MEDS: amlodipine 5 mg Tablet 2.5 MG PO (07:57)
[2020-07-19] MEDS: famotidine 20 mg/2 mL INJ IVP (07:58)
--- NOTE | 2020-07-19 10:19 | PC.NURSE ---
Discharge instructions given to patient and patient verbalized understanding of instructions. iv discontinued and removed. iv catheter intact. patient requesting work release. Dr Cade notified.
--- NOTE | 2020-07-19 10:45 | PC.NURSE ---
Per Dr Cade patient can return to work after 10 days
[2020-07-19 10:55] VITALS: BP 160/110; PULSE 88; RESP 16; TEMP 36.3; O2SAT 96
--- NOTE | 2020-07-19 11:51 | PC.NURSE ---
patient ambulated to private vehicle with staff at side.
[2020-07-19 11:52] VITALS: BP 160/110; PULSE 88; RESP 16; TEMP 36.3; O2SAT 96
== END 2020-07-19 11:53 | disposition home or self-care (01) ==
LOC: ER 13:34 → OR 13:35 → MEDSURG 17:05
PROVIDERS: Admitting Provider Surgery; Emergency Provider Physician Assistant; PCP Family Medicine; Visit Provider Surgery
PROC: 0DTJ4ZZ Resection of Appendix, Percutaneous Endoscopic Approach (ICD-10-PCS; CPT 44970; principal; 2020-07-17 15:30)
DX: K35.30 Acute appendicitis with localized peritonitis, without perforation or gangrene (principal); I10 Essential (primary) hypertension; K21.9 Gastro-esophageal reflux disease without esophagitis; Z87.891 Personal history of nicotine dependence
CPT/HCPCS: 44970; 36415; 74177; 80048; 80053; 81001; 83605; 83690; 84703; 85025; 88304; 96365; 96366; 96367; 96375; 99285; G0378; J0330; J0360; J1100; J2405; J2543; J2704; J2710; J3010; J3490; J7030; Q9967

== ENCOUNTER 2021-04-27 13:31 | Outpatient (CLI) | payer BC, SELFPAY ==
--- NOTE | 2021-04-27 13:37 | XR_ITS ---
WS: [id number] Lumbar spine, 3 views, 04/27/2021 Clinical Data: chronic low back pain Comparison: Lumbar spine, 12/27/2016. Findings: No compression fractures or subluxation is seen. No disc space narrowing is seen. The transverse proc esses and SI joints are normal. There is minimal anterior spurring at L3-L5. There are clips in the right side of the true pelvis fro m surgery. XR/XR lumbar spine 2-3V* [id number] Impression: Mild osteoarthritis of L3-L5.
== END 2021-04-27 13:32 | disposition home or self-care (01) ==
PROVIDERS: PCP Family Medicine; Visit Provider Family Medicine
DX: M47.816 Spondylosis without myelopathy or radiculopathy, lumbar region (principal); G89.29 Other chronic pain
CPT/HCPCS: 72100

== ENCOUNTER 2021-05-15 06:00 | Outpatient (RCR) | payer BC, SELFPAY | END 2021-05-24 23:59 | disposition home or self-care (01) | LOC: SPT 06:00 | PROVIDERS: PCP Family Medicine; Referring Provider Family Medicine; Visit Provider Family Medicine | DX: M54.50 Low back pain, unspecified (principal); G89.29 Other chronic pain | CPT/HCPCS: 97110; 97161 ==

== ENCOUNTER 2021-05-25 06:00 | Outpatient (RCR) | payer BC, SELFPAY | END 2021-06-23 23:59 | disposition home or self-care (01) | LOC: SPT 06:00 | PROVIDERS: PCP Family Medicine; Referring Provider Family Medicine; Visit Provider Family Medicine | DX: M54.50 Low back pain, unspecified (principal); G89.29 Other chronic pain | CPT/HCPCS: 97110 ==

== ENCOUNTER 2022-01-08 15:36 | Outpatient (CLI) | payer OTHER, SELFPAY ==
--- NOTE | 2022-01-08 15:42 | MM_ITS ---
WS: [id number] BILATERAL 3D TOMOSYNTHESIS DIGITAL SCREENING MAMMOGRAPHY WITH CAD CLINICAL INFORMATION: screening mammogram HISTORY: Screening mammogram. No current complaints. COMPARISON: 017 TECHNIQUE: Bilateral CC and MLO views. FINDINGS: The breasts are composed of heterogeneous fibroglandular density tissue, which can limit the detectio n of small underlying mass lesions. No suspicious mass, asymmetry, calcifications, or architectural d istortion. No evidence of malignancy. A few incidental punctate and lucent centered calcifications. MM/[place] [id number] IMPRESSION: BI-RADS: 2-Benign FOLLOW UP: 1 Year Follow-up Recommend return to annual screening mammography.
== END 2022-01-08 15:37 | disposition home or self-care (01) ==
LOC: RAD 15:40
PROVIDERS: PCP Family Medicine; Visit Provider Family Medicine
DX: Z12.31 Encounter for screening mammogram for malignant neoplasm of breast (principal)
CPT/HCPCS: 77063; 77067

== ENCOUNTER → 2022-01-25 08:23 | Outpatient (BNVA) | payer OTHER, SELFPAY | PROVIDERS: PCP Family Medicine; Visit Provider Family Medicine | DX: I10 Essential (primary) hypertension (principal) | CPT/HCPCS: 80053; 80061; 82043; 85025 ==

== ENCOUNTER 2022-01-31 15:00 | Outpatient (CLI) | payer OTHER, SELFPAY ==
--- NOTE | 2022-01-31 15:27 | MR_ITS ---
WS: [id number] MRI LUMBAR SPINE WITH AND WITHOUT HISTORY: chronic low back pain COMPARISON: Lumbar spine 04/27/2021 TECHNIQUE: Sagittal and axial multisequence imaging is submitted. Postcontrast imaging with MultiHanc e 17 mL IV. Normal posterior lumbar alignment. Very mild disc space narrowing and desiccation. No fracture or mar row edema. Conus terminates normally at L1. L1-L2: Moderate facet joint arthritis, greatest on the LEFT. Mild foraminal narrowing. L2-L3: Mild disc bulging with moderate to severe bilateral facet joint arthritis with ligamentum flav um hypertrophy. Mild bilateral foraminal stenosis, RIGHT greater than LEFT. Mild disc encroachment up on the subarticular recesses. L3-L4: Mild annular disc bulge with marked ligamentum flavum and facet arthritis. Fluid in the facet joints bilaterally. Mild bilateral subarticular recess and foraminal stenosis. Slightly greater encro achment upon the RIGHT L3 and L4 nerve roots. L4-L5: Severe facet joint arthritis and ligamentum flavum hypertrophy. Moderate bilateral subarticula r recess and foraminal stenosis. Facet joint arthritis encroaches into the subarticular recesses. L5-S1: Mild foraminal stenosis. No discitis or osteomyelitis. No epidural abscess. MR/MR lumbar spine wo/w con [id number] IMPRESSION: 1. Significant facet joint arthritis throughout the lumbar spine. No focal dis c protrusions or high-grade central stenosis. 2. Moderate bilateral subarticular recess and foraminal stenosis at L4-5 with encroachment into the subarticular recesses. 3. Mild bilateral subarticular recess and foraminal stenosis. Greater encroach ment upon the RIGHT L3 and L4 nerve roots. 4. Mild foraminal narrowing at L1-2 and L2-3 and L5-S1.
[2022-01-31] MEDS: gadobenate dimeglumine 20 mL vial IV (15:48)
== END 2022-01-31 15:01 | disposition home or self-care (01) ==
PROVIDERS: PCP Family Medicine; Visit Provider Family Medicine
DX: M54.50 Low back pain, unspecified (principal); G89.29 Other chronic pain
CPT/HCPCS: 72158; A9577

== ENCOUNTER 2022-09-13 14:24 | Outpatient (CLI) | payer OTHER, SELFPAY ==
--- NOTE | 2022-09-13 14:38 | XR_ITS ---
WS: [id number] Exam: XR shoulder RT min 2V* [id number] Date/Time of Exam: 09/13/2022 2:45 PM Reason For Exam: right shoulder pain No fracture or dislocation. Mild DJD at the AC joint. Normal soft tissues. XR/XR shoulder RT min 2V* [id number] IMPRESSION: 1. Mild AC joint DJD.
== END 2022-09-13 14:25 | disposition home or self-care (01) ==
PROVIDERS: PCP Family Medicine; Visit Provider Family Medicine
DX: M75.41 Impingement syndrome of right shoulder (principal); M19.011 Primary osteoarthritis, right shoulder
CPT/HCPCS: 73030

== ENCOUNTER 2022-10-10 06:00 | Outpatient (RCR) | payer OTHER, SELFPAY | END 2022-10-24 23:59 | disposition home or self-care (01) | LOC: TPT 06:00 | PROVIDERS: PCP Family Medicine; Visit Provider Family Medicine | DX: M75.41 Impingement syndrome of right shoulder (principal) | CPT/HCPCS: 97110; 97140; 97162 ==

== ENCOUNTER → 2022-10-24 13:40 | Outpatient (BNVA) | payer OTHER, SELFPAY | PROVIDERS: PCP Family Medicine; Visit Provider Family Medicine | DX: M79.10 Myalgia, unspecified site (principal); Z13.6 Encounter for screening for cardiovascular disorders | CPT/HCPCS: 80053; 82550; 85025; 85651; 86038; 86140; 86200; 86431 ==

== ENCOUNTER 2022-10-25 06:00 | Outpatient (RCR) | payer OTHER, SELFPAY | END 2022-11-23 23:59 | disposition home or self-care (01) | LOC: TPT 06:00 | PROVIDERS: PCP Family Medicine; Visit Provider Family Medicine | DX: M75.41 Impingement syndrome of right shoulder (principal) | CPT/HCPCS: 97110; 97140 ==

== ENCOUNTER 2022-10-25 10:19 | Day surgery (SDC) | payer OTHER, SELFPAY ==
[2022-10-24 09:09] VITALS: BMI 25.7
[2022-10-25] VITALS (11 sets, daily range): BP systolic 131–164; BP diastolic 77–94; PULSE 74–99; RESP 11–18; TEMP 36.6–37.3; O2SAT 98–100
[2022-10-25] MEDS: sodium chloride 0.9% 1,000 ML 30 ML IV (10:45)
--- NOTE | 2022-10-25 10:55 | ANES.PREANE2 ---
Pre-Anesthetic Assessment Height/Weight: Height 1.73 m Weight 76.657 kg Temp Pulse Resp BP Pulse Ox O2 Del Method 98.2 F 84 18 164/94 98 Room Air 10/25/22 10:33 10/25/22 10:33 10/25/22 10:33 10/25/22 10:33 10/25/22 10:33 10/25/22 10:35 Operation Date: 10/25/22 12:00 Proposed Procedures p [id number] wide local excision of left leg lesion D03.9(Left) - Chu Gonzalez DO Familial anesthetic complications: PONV Was Beta Surya taken within 24 hours: N/A Was Clonidine taken within 24 hours: N/A Last intake: Intake Last Liquid Date 10/24/22 Last Liquid Time 23:30 Last Solid Date 10/24/22 Last Solid Time 23:30 Social No alcohol and No tobacco Exam alert, oriented x 3, clear to auscultation bilaterally and regular rate & rhythm Airway Mallampati: Class I Dentition: full CV/HEM Hypertension Metabolic Hyperlipidemia Anesthetic Plan ASA status: 2 Anesthesia: Choice Risk of > 500 ml blood loss (7ml/kg in children): No Medications/Allergies Home Medications Medication Instructions Recorded Confirmed Last Taken Type fluticasone propionate 50 See Rx Instructions .Route 12/11/20 10/25/22 10/24/22 Rx mcg/actuation nasal .COMPLEX #16 grams spray,suspension albuterol sulfate 2.5 mg/3 mL 2.5 mg (3 mL) inhalation Q8H PRN 02/11/22 10/25/22 Unknown Rx (0.083 %) solution for nebulization bronchospasm #180 mL montelukast 10 mg tablet 10 mg PO DAILY #90 tabs 09/13/22 10/24/22 10/24/22 Rx amlodipine 10 mg tablet 10 mg PO DAILY #90 tabs 10/14/22 10/24/22 10/24/22 Rx atorvastatin 20 mg tablet 20 mg PO DAILY #90 tabs 10/15/22 10/24/22 10/23/22 Rx acetaminophen 325 mg capsule 325 mg PO QID PRN Pain 10/22/22 10/24/22 10/24/22 History (Tylenol) Allergies Allergy/AdvReac Type Severity Reaction Status Date / Time codeine Allergy hives Verified 10/25/22 10:39 Current Medications Generic Name Dose Route Start Last Admin Trade Name Joséq PRN Reason Stop Dose Admin Sodium Chloride 1,000 mls @ 30 mls/hr 10/25/22 10:30 10/25/22 10:45 Sodium Chloride 0.9% IV 10/26/22 10:29 30 mls/hr .Q24H CHUY Administration PFSH Anesthesia Medical History Acute appendicitis We will plan to discharge patient home today On p.o. antibiotics and pain medication Assurance and education All questions have been answered and all concerns have been addressed to patient's satisfaction. Allergic rhinitis Essential hypertension Reflux esophagitis Surgical History H/O carpal tunnel repair H/O carpal tunnel repair Left - 06/2021 H/O section H/O decompression of ulnar nerve H/O hernia repair H/O knee surgery History of appendectomy History of esophagogastroduodenoscopy (EGD) Hx of colonoscopy Family History Other CAD (coronary artery disease) Cancer Hypertension Social History Smoking and tobacco status: current some day smoker cigarettes Alcohol intake: current Alcohol intake frequency: 0-2 Drinks per Day Alcohol type: beer Substance/Drug Use: never Female Reproductive History Date of last menstrual period: 10/24/22 Data Anesthesia Cardiac Studies: No Data to Display
[2022-10-25] MEDS: scopolamine 1.5 Patch 1 PATCH TRANSDERMA (10:59)
--- NOTE | 2022-10-25 11:05 | W.PM.OPSUD ---
Surgery/Procedure H&P Update DATE OF PROCEDURE: October 25, 2022 DATE H&P PERFORMED: 10/22/22 H&P UPDATE INFORMATION: I have reviewed H&P completed within last 30 days, I have examined patient prior to procedure and No changes to prior documentation PLANNED PROCEDURE: Operation Date: 10/25/22 12:00 Proposed Procedures p [id number] wide local excision of left leg lesion D03.9(Left) - Chu Gonzalez DO
[2022-10-25] MEDS: ceFAZolin 2,000 MG in sodium chloride 0.9% (plus) 50 ML 100 MG IV (12:56)
--- NOTE | 2022-10-25 13:30 | P.OP_ITS ---
Operative Report Date of procedure: October 25, 2022 Pre-op diagnosis: Malignant melanoma in situ left leg Post-op diagnosis: same Procedure done: Wide local excision of malignant melanoma in situ left leg Implants: None Specimens removed/disposition: Wide local skin excision Surgeon: Chu Gonzalez DO Anesthesia: General Estimated blood loss (mL): 5 Complications: None apparent Brief History: This a very pleasant 57-year-old female who presented to my office after a shave biopsy of a lesion on her left leg came back as malignant melanoma in situ. Wide local excision is indicated. The risk and benefits were explained and documented. Procedure: Patient was wheeled in operative room and placed on the OR table in supine position. General tracheal ovation was achieved by department anesthesia. The patient was then placed into the right lateral decubitus position. The left leg was inspected prepped and draped in usual sterile fashion. Timeout was performed. All present were in agreement. After localizing with 2% lidocaine with epinephrine a wide local excision was performed. A border of normal tissue approximately 1 cm radially distant from the shave biopsy was taken with a 10 blade scalpel. Electrocautery was then used to ligate the subcutaneous tissue and remove the skin excision. Excision measured 7.5 x 3.5 cm. Lesion on her leg measured 1.5 cm in diameter. Hemostasis was achieved with electrocautery. The skin was then closed with 2-0 nylon and a simple horizontal mattress fashion. The rest of the skin was closed with 3-0 nylon in a simple interrupted fashion. Skin was washed and dried. Sterile bandages applied. Patient t olerated procedure well.
[2022-10-25] MEDS: lidocaine-epi 2% 20 mL INJ 9 ML INJECTION (13:35)
--- NOTE | 2022-10-25 14:58 | ANE.PACU2 ---
Inpatient post-anesthesia follow up: Airway intact: Yes Vital signs: Temperature 98 F Pulse Rate 82 Respiratory Rate 16 Blood Pressure 131/88 Pulse Oximetry 100 Oxygen Delivery Me thod Room Air Oxygen Flow Rate Fraction of Inspir ed Oxygen Hydration adequate: Yes Nausea and vomiting: No Pain level: 1 Mental status: Baseline
== END 2022-10-25 14:55 | disposition home or self-care (01) ==
PROVIDERS: PCP Family Medicine; Visit Provider Surgery
PROC: (CPT 11606; principal; 2022-10-25 12:00)
DX: D03.72 Melanoma in situ of left lower limb, including hip (principal); I10 Essential (primary) hypertension; E78.5 Hyperlipidemia, unspecified; F17.210 Nicotine dependence, cigarettes, uncomplicated
CPT/HCPCS: 11606; 12032; 88307; J0690; J2405; J2704; J3010; J7030

== ENCOUNTER 2022-11-05 19:33 | Emergency (ER) | payer OTHER, SELFPAY ==
[2022-11-05 19:42] VITALS: BP 148/75; PULSE 96; RESP 16; TEMP 37.2; O2SAT 97; BMI 25.4
--- NOTE | 2022-11-05 20:04 | W.ED.SKABFB ---
HPI - Skin/Abscess/Foreign Bdy General: Chief complaint: Skin/Abscess/Foreign Body Stated complaint: Left Leg Stiches out leg open up Time Seen by Provider: 11/05/22 19:57 History of Present Illness: 57-year-old female comes left leg. Patient had the sutures removed today from a lesion removal which this evening opened up on her. Patient placed a wet gauze on it and wrapped the wound. Patient appears nontoxic. Patient denies any fever. Review of Systems General: Reports: 10 or more systems reviewed and unremarkable except in HPI and below Skin/Breast: Reports: other (Open surgical incision) [facility] ED PFSH: Medical History Acute appendicitis We will plan to discharge patient home today On p.o. antibiotics and pain medication Assurance and education All questions have been answered and all concerns have been addressed to patient's satisfaction. Allergic rhinitis Essential hypertension Reflux esophagitis Surgical History H/O carpal tunnel repair H/O carpal tunnel repair Left - 06/2021 H/O section H/O decompression of ulnar nerve H/O hernia repair H/O knee surgery History of appendectomy History of esophagogastroduodenoscopy (EGD) Hx of colonoscopy Family History Other CAD (coronary artery disease) Cancer Hypertension Social History Smoking and tobacco status: current some day smoker cigarettes Alcohol intake: current Alcohol intake frequency: 0-2 Drinks per Day Alcohol type: beer Substance/Drug Use: never Physical Exam Const: COMMON NORMALS: alert HENMT: COMMON NORMALS: normocephalic HEAD & SCALP: normocephalic Neck/C-Spine: COMMON NORMALS: full ROM Resp: COMMON NORMALS: normal respiratory effort and clear to auscultation bilaterally AUSCULTATION: clear to auscultation bilaterally Cardio: COMMON NORMALS: regular rate and regular rhythm RATE: regular rate RHYTHM: regular rhythm Back/Pelvis: COMMON NORMALS: thoracic and lumbar spine normal to inspection Extremity: LEFT LOWER EXTREMITY: Yes lower leg (Open horizontal incision approximately 6 cm, 2 cm gaping) Neuro: SENSORIUM/ORIENTATION: Yes alert Skin: COMMON NORMALS: turgor normal GENERAL SKIN EXAM: turgor normal WOUNDS: Yes surgical site (Left calf, no surrounding erythema. [place] tissue) Course ED course: 57-year-old female comes in today for open incision from surgical site. On exam patient has a horizontal incision that has opened up to her left calf. Is approximately 6 cm long with 2 cm gaping. Distal pulses and sensation are intact. No surrounding erythema to the tissue. Vital signs are normal. Differential diagnosis includes dehiscence of wound, wound infection, abscess. No signs of infection is noted. I talked with Dr. Gonzalez the surgeon that had done her procedure and removed the stitches today. He feels the patient probably needs to have the wound closed and is going to request Dr. Gould to come in and see the patient and closed the wound. 2030, Dr. Gould evaluated patient will close wound, recommend ax and dc to home. Vital Signs: Vital signs: Vital Signs Temperature 98.9 F 11/05/22 19:42 Pulse Rate 96 11/05/22 19:42 Respiratory Rate 16 11/05/22 19:42 Blood Pressure 148/75 11/05/22 19:42 Pulse Oximetry 97 11/05/22 19:42 Oxygen Delivery Me thod Room Air 11/05/22 19:42 MDM - Skin/Abscess/Foreign Bdy Medicial Decision Making 57-year-old female comes in today with dehiscence of a surgical wound. On exam patient has a open incision line to the posterior left calf. It is approximately 6 cm long and 2 cm gaping. Reviewed the exam with Dr. Gonzalez who wanted the wound closed, and he contacted Dr. Gould whom came in to see patient and closed the wound. Patient was discharged to home with Augmentin 1 tablet twice a day for 7 days with recommendations for follow-up in surgeons office. Discharge Plan Discharge Patient Disposition: Home Clinical Impression: Postoperative wound dehiscence Qualifiers: Encounter type: initial encounter Qualified Code(s): T81.31XA - Disruption of external operation (surgical) wound, not elsewhere classified, initial encounter Condition: Stable Prescriptions: New amoxicillin-pot clavulanate 875-125 mg tablet 1 tab PO BID Qty: 14 0RF No Action montelukast 10 mg tablet 10 mg PO DAILY Qty: 90 1RF celecoxib [Celebrex] 200 mg capsule 200 mg PO DAILY Qty: 30 0RF acetaminophen [Tylenol] 325 mg capsule 325 mg PO QID PRN (Reason: Pain) fluticasone propionate 50 mcg/actuation spray,suspension See Rx Instructions .ROUTE .COMPLEX Qty: 16 0RF Dose Instruction: SHAKE LIQUID AND USE 1 SPRAY IN EACH NOSTRIL TWICE DAILY Rx Instructions: SHAKE LIQUID AND USE 1 SPRAY IN EACH NOSTRIL TWICE DAILY albuterol sulfate 2.5 mg /3 mL (0.083 %) solution for nebulization 2.5 mg inhalation Q8H PRN (Reason: bronchospasm) Qty: 180 1RF amlodipine 10 mg tablet 10 mg PO DAILY Qty: 90 1RF atorvastatin 20 mg tablet 20 mg PO DAILY Qty: 90 0RF prednisone 20 mg tablet 20 mg PO DAILY Qty: 30 0RF Rx Instructions: Take with food omeprazole 20 mg capsule,delayed release(DR/EC) 20 mg PO DAILY Qty: 30 0RF Discharge Orders: Discharge ED (Routine); Ordered 11/05/22 Ordered By: Josh Barron Referrals: Isabell Laboy DO [Primary Care Provider] - Discharge Diet: Usual diet Discharge Activity: Increase activity as tolerated Patient Instructions: Wound Healing and Your Diet (ED), Wound Dehiscence (ED) Activity Restrictions/Additional Instructions: Healthy diet. Activity as tolerated. Drink plenty water and fluids. If you smoke, avoid cigarette smoking to promote wound healing. Follow-up with primary care or surgeons office in 1 week for recheck. Return to ER for new concerns. 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
[2022-11-05] MEDS: lidocaine-epi 1% 20 mL INJ INJECTION (20:37)
[2022-11-05 21:21] VITALS: PULSE 100; RESP 14; O2SAT 99
--- NOTE | 2022-11-05 21:40 | P.CONIM_ITS ---
Providers/Reason For Consult Consulting Physician/Specialty*: General Surgery Reason for Consult*: Left Calf wound dehiscense Primary Care Provider: Isabell Laboy DO History of Present Illness History of Present Illness Prudence Plummer is a 57 year old female who presents to the ER for a dehiscense of a left calf wound. 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 today she presented to surgeon office and suttures were removed. once the patient arrived home she noticed dehiscense of the wound. she denies any additional symptoms. minimal oozing from the wound bed. Medications/Allergies Home Medications Medication Instructions Recorded Confirmed Last Taken Type fluticasone propionate 50 See Rx Instructions .Route 12/11/20 11/05/22 10/24/22 Rx mcg/actuation nasal .COMPLEX #16 grams spray,suspension albuterol sulfate 2.5 mg/3 mL 2.5 mg (3 mL) inhalation Q8H PRN 02/11/22 11/05/22 Unknown Rx (0.083 %) solution for nebulization bronchospasm #180 mL montelukast 10 mg tablet 10 mg PO DAILY #90 tabs 09/13/22 11/05/22 10/24/22 Rx amlodipine 10 mg tablet 10 mg PO DAILY #90 tabs 10/14/22 11/05/22 10/24/22 Rx atorvastatin 20 mg tablet 20 mg PO DAILY #90 tabs 10/15/22 11/05/22 10/23/22 Rx acetaminophen 325 mg capsule 325 mg PO QID PRN Pain 10/22/22 11/05/22 10/24/22 History (Tylenol) celecoxib 200 mg capsule (Celebrex) 200 mg PO DAILY #30 caps 10/31/22 11/05/22 Unknown Rx amoxicillin 875 mg-potassium 1 tab PO BID #14 tabs 11/05/22 Unknown Rx clavulanate 125 mg tablet omeprazole 20 mg capsule,delayed 20 mg PO DAILY #30 caps 11/05/22 Unknown Rx release prednisone 20 mg tablet 20 mg PO DAILY #30 tabs 11/05/22 Unknown Rx Allergies Allergy/AdvReac Type Severity Reaction Status Date / Time codeine Allergy hives Verified 11/05/22 19:42 PFSH Acute PFSH: Medical History Acute appendicitis We will plan to discharge patient home today On p.o. antibiotics and pain medication Assurance and education All questions have been answered and all concerns have been addressed to patient's satisfaction. Allergic rhinitis Essential hypertension Reflux esophagitis Surgical History H/O carpal tunnel repair H/O carpal tunnel repair Left - 06/2021 H/O section H/O decompression of ulnar nerve H/O hernia repair H/O knee surgery History of appendectomy History of esophagogastroduodenoscopy (EGD) Hx of colonoscopy Family History Other CAD (coronary artery disease) Cancer Hypertension Social History Smoking and tobacco status: current some day smoker cigarettes Alcohol intake: current Alcohol intake frequency: 0-2 Drinks per Day Alcohol type: beer Substance/Drug Use: never Vitals/I&O/Wt Last Vital Signs Temp 98.9 F 11/05/22 19:42 Pulse 96 11/05/22 19:42 Resp 16 11/05/22 19:42 BP 148/75 11/05/22 19:42 Pulse Ox 97 11/05/22 19:42 O2 Del Method Room Air 11/05/22 19:42 Weight last 48 hrs Weight 167 lb Physical Exam Extremity: NARRATIVE EXTREMITY EXAM: on the left lower extrewmity there was a 15cm x 3cm x1cm wound, the base was clean and with minimal oozing. the wound compromises the skin and subcutaneous tissue. A&P Assessment and plan (1) Postoperative wound dehiscence: Qualifiers: Encounter type: initial encounter Qualified Code(s): T81.31XA - Disruption of external operation (surgical) wound, not elsewhere classified, initial encounter Plan after a complete history, physical examination and review of clinical date I offered a wound repair for surgical wound dehiscense. the patient was informed of the risks of the procedure including the risk of bleeding, infection, abscess formation, poor cosmetic outcome, dehiscense and poor wound healing. patient agrees with the risks and wishes to proceed. after consent was obtained and a tiem out conducted the wound was prepped and draped in the usual sterile fashion. I then injected 20cc of 1% lidocaine with epinephrine and then profuselly irrigated the wound with saline. the wound edges appeared vital and therefore I proceeded with primary aproximation of the wound using #3-0 Nylon vertical matress sutures. after wound was repaired, steriel dressing was applied. patient will be discharged home on PO Augmentin and will follow up with primary surgeon next week. warning signs and wound care instructions given. Coding Level of Care Code Acute Code for [facility] Fwd Diagnoses Postoperative wound dehiscence T81.31XA Encounter type: initial encounter
[2022-11-05] MEDS: amoxicillin-clav 875-125 mg Tablet 1 TAB PO (21:44)
[2022-11-05 21:54] VITALS: PULSE 97; RESP 14; O2SAT 99
--- NOTE | 2022-11-05 22:03 | PC.NURSE ---
Dr Gould in room with assistance of Colleen sierra for wound cleaning. Used betadine swabs prior to numbing with Lido. Then washed wound with Sterile saline, bottle betadine and gauze. Lac tray, sutures, then provider asked for second pk sutures. 4x4s, abd pad, gauze wrap, then ryan for cover.
== END 2022-11-05 22:08 | disposition home or self-care (01) ==
PROVIDERS: Emergency Provider Nurse Practitioner Family; PCP Family Medicine
DX: T81.31XA Disruption of external operation (surgical) wound, not elsewhere classified, initial encounter (principal); I10 Essential (primary) hypertension; F17.210 Nicotine dependence, cigarettes, uncomplicated
CPT/HCPCS: 99283; 99291

== ENCOUNTER 2022-11-24 06:00 | Outpatient (RCR) | payer OTHER, SELFPAY | END 2022-12-03 23:59 | disposition home or self-care (01) | LOC: TPT 06:00 | PROVIDERS: PCP Family Medicine; Visit Provider Family Medicine | DX: M75.41 Impingement syndrome of right shoulder (principal) | CPT/HCPCS: 97110 ==

== ENCOUNTER → 2022-12-06 08:46 | Outpatient (BNVA) | payer OTHER, SELFPAY | PROVIDERS: PCP Family Medicine; Referring Provider Family Medicine; Visit Provider Student in an Organized Health Care Education/Training Program | DX: M19.031 Primary osteoarthritis, right wrist | CPT/HCPCS: 73110 ==

== ENCOUNTER 2023-01-13 15:26 | Outpatient (CLI) | payer OTHER, SELFPAY ==
--- NOTE | 2023-01-13 16:04 | MM_ITS ---
WS: [id number] BILATERAL 3D TOMOSYNTHESIS DIGITAL SCREENING MAMMOGRAPHY WITH CAD CLINICAL INFORMATION: SCREEN HISTORY: Screening mammogram. No current complaints. COMPARISON: None. TECHNIQUE: Bilateral CC and MLO views. FINDINGS: The breasts are composed of heterogeneous fibroglandular density tissue, which can limit the detectio n of small underlying mass lesions. No suspicious mass, asymmetry, calcifications, or architectural d istortion. No evidence of malignancy. A few incidental punctate and lucent centered calcifications. IMPRESSION: MM/[place] [id number] BI-RADS: 2-Benign FOLLOW UP: 1 Year Follow-up Recommend return to annual screening mammography.
== END 2023-01-13 15:27 | disposition home or self-care (01) ==
LOC: RAD 15:27
PROVIDERS: PCP Family Medicine; Visit Provider Family Medicine
DX: Z12.31 Encounter for screening mammogram for malignant neoplasm of breast (principal)
CPT/HCPCS: 77063; 77067

== ENCOUNTER → 2023-02-11 15:08 | Outpatient (BNVA) | payer OTHER, SELFPAY | PROVIDERS: PCP Family Medicine; Visit Provider Family Medicine | DX: E78.5 Hyperlipidemia, unspecified (principal); L60.0 Ingrowing nail; M35.3 Polymyalgia rheumatica; Z79.899 Other long term (current) drug therapy | CPT/HCPCS: 80061; 80076; 82565; 85025; 85651; 86140 ==

== ENCOUNTER → 2023-03-12 14:14 | Outpatient (BNVA) | payer OTHER, SELFPAY | PROVIDERS: PCP Family Medicine; Visit Provider Internal Medicine Rheumatology | DX: M35.3 Polymyalgia rheumatica (principal); Z79.899 Other long term (current) drug therapy | CPT/HCPCS: 36415; 82565; 84520 ==

== ENCOUNTER → 2023-06-23 14:30 | Outpatient (BNVA) | payer OTHER, SELFPAY | PROVIDERS: PCP Family Medicine; Visit Provider Internal Medicine Rheumatology | DX: M35.3 Polymyalgia rheumatica (principal) | CPT/HCPCS: 36415; 80076; 82310; 82565; 83735; 84100; 84132; 85025; 86140 ==

== ENCOUNTER → 2024-03-04 14:56 | Outpatient (BNVA) | payer OTHER, SELFPAY | PROVIDERS: PCP Family Medicine; Visit Provider Internal Medicine Rheumatology | DX: M35.3 Polymyalgia rheumatica (principal) | CPT/HCPCS: 36415; 80076; 82565; 85025; 85651; 86140 ==

== ENCOUNTER → 2024-07-01 09:43 | Outpatient (BNVA) | payer OTHER, SELFPAY | PROVIDERS: PCP Family Medicine; Visit Provider Family Medicine | DX: Z01.419 Encounter for gynecological examination (general) (routine) without abnormal findings (principal); I10 Essential (primary) hypertension | CPT/HCPCS: 87624 ==

== ENCOUNTER 2024-07-13 08:48 | Outpatient (CLI) | payer OTHER, SELFPAY ==
--- NOTE | 2024-07-13 09:00 | MM_ITS ---
WS: [id number] BILATERAL 3D TOMOSYNTHESIS DIGITAL SCREENING MAMMOGRAPHY WITH CAD CLINICAL INFORMATION: screening HISTORY: Screening mammogram. No current complaints. COMPARISON: 2022 TECHNIQUE: Bilateral CC and MLO views. FINDINGS: The breasts are composed of heterogeneous fibroglandular density tissue, which can limit the detection of small underlying mass lesions. No suspicious mass, asymmetry, calcifications, or architectural distortion. No evidence of malignancy. Few incidental punctate calcifications. MM/MM [facility] tomosynthesis [id number] IMPRESSION: DENSITY: The breasts are heterogeneously dense, which may obscure small masses. BI-RADS: 2 - Benign FOLLOW UP: 1 Year Follow-up Recommend return to annual screening mammography.
== END 2024-07-13 08:49 | disposition home or self-care (01) ==
PROVIDERS: PCP Family Medicine; Visit Provider Family Medicine
DX: Z12.31 Encounter for screening mammogram for malignant neoplasm of breast (principal); R92.333 Mammographic heterogeneous density, bilateral breasts; R92.1 Mammographic calcification found on diagnostic imaging of breast
CPT/HCPCS: 77063; 77067

== ENCOUNTER → 2024-08-13 11:25 | Outpatient (BNVA) | payer OTHER, SELFPAY | PROVIDERS: PCP Family Medicine; Visit Provider Family Medicine | DX: I10 Essential (primary) hypertension (principal) | CPT/HCPCS: 80053; 80061; 84443 ==

== ENCOUNTER → 2024-12-07 08:27 | Outpatient (BNVA) | payer OTHER, SELFPAY | PROVIDERS: PCP Family Medicine; Visit Provider Family Medicine | DX: I10 Essential (primary) hypertension (principal) | CPT/HCPCS: 80048 ==

== ENCOUNTER → 2025-01-24 15:21 | Outpatient (BNVA) | payer OTHER, SELFPAY | PROVIDERS: PCP Family Medicine; Visit Provider Internal Medicine Rheumatology | DX: M35.3 Polymyalgia rheumatica (principal); Z79.899 Other long term (current) drug therapy | CPT/HCPCS: 36415; 80076; 82565; 85025; 85651; 86140 ==